=== PATIENT | female | born 1940 | race Hispanic/Latino ===

== ENCOUNTER 2017-04-17 02:48 | Inpatient (IN) | payer MEDICARE ==
[2017-04-17] MEDS ORDERED: Insulin Regular 300 UNITS/3 ML VIAL ONE (03:55)
[2017-04-17] MEDS ORDERED: Enoxaparin Sodium 80 MG/0.8 ML SYRINGE ONE (03:55)
[2017-04-17 04:17] LABS: Troponin I Less than 0.010 ng/mL (< 0.028)
[2017-04-17] MEDS ORDERED: HumaLOG 300 UNITS/3 ML VIAL SC PRN (05:43)
[2017-04-17] MEDS ORDERED: Dextrose 50% Abboject 50 ML SYRINGE SLOW IVP PRN (05:43)
[2017-04-17] MEDS ORDERED: Dextrose 5% in Water 1,000 ML IV PRN (05:43)
[2017-04-17] MEDS ORDERED: Milk Of Magnesia 30 ML UDCUP PO PRN (05:43)
[2017-04-17] MEDS ORDERED: Ondansetron ODT 4 MG TAB PO PRN (05:43)
[2017-04-17] MEDS ORDERED: Acetaminophen 325 MG TAB PO PRN (05:43)
[2017-04-17] MEDS: Furosemide 20 MG/2 ML VIAL SLOW IVP SCH ×2 (06:27→14:32)
[2017-04-17] MEDS: Potassium Chloride 20 MEQ TAB PO SCH (06:28)
[2017-04-17 06:37] LABS: Anion Gap 15 mmol/L (10-20); BUN (Urea Nitrogen) 48 mg/dL (9.8-20.1); Calc. Creatinine Clearance 0 mL/min (70-130); Calcium 8.8 mg/dL (7.8-10.44); Carbon Dioxide 21 mmol/L (23-31); Chloride 105 mmol/L (98-107); Estimated GFR-MDRD 18
[2017-04-17 06:42] LABS: Troponin I 0.011 ng/mL (< 0.028)
[2017-04-17 07:30] LABS: Sodium, Urine 106 mmol/L (Not Available)
[2017-04-17 08:11] VITALS: BMI 26.6
[2017-04-17] MEDS ORDERED: Insulin Detemir 100 UNITS/ML 10 UNITS in Admixture Fee 1 EACH SC SCH ×2 (09:00→21:00)
[2017-04-17] MEDS ORDERED: Amlodipine Besylate/Benazepril 5/10 Capsule PO SCH (09:00)
[2017-04-17] MEDS: Clopidogrel Bisulfate 75 MG TAB PO SCH (09:58)
[2017-04-17] MEDS: Pregabalin 75 MG CAP PO SCH ×2 (09:58→21:47)
[2017-04-17] MEDS: Venlafaxine HCl XR 75 MG CAP PO SCH (09:58)
[2017-04-17] MEDS: HumaLOG 300 UNITS/3 ML VIAL SC PRN ×3 (10:00→18:04)
--- NOTE | 2017-04-17 10:10 | NM ---
VQ SCAN: INDICATION: History Of elevated D-dimer: CHF with shortness of breath. COMPARISON: Prior chest radiograph 08/18/16 at 12:087 a.m. RADIOPHARMACEUTICAL: 10.10 mCi of Xenon 133 inhaled and 6.2 mCi of Technetium 99m-MAA IV. FINDINGS: VENTILATION: No ventilatory defect is evident. Washout images appear within normal limits. There is no retentio n of radiotracer. PERFUSION: No large pleural-based perfusion defect is evident. No enlarged mismatched ventilatory perfusion ab normality is evident. COMPARISON: Low probability VQ scan for acute PE. POS: [facility]
[2017-04-17 13:06] LABS: Hemoglobin A1c 9.5 % (4.0-6.0)
--- NOTE | 2017-04-17 13:14 | HP ---
CHIEF COMPLAINT: Shortness of breath. HISTORY OF PRESENT ILLNESS: Ms. Christopher is a pleasant 76-year-old female with a previous h istory of CABG several years ago. For the last 3 days, she has experienced increased dyspnea on exe rtion and orthopnea to the point that she came to our emergency room. Chest x-ray there did demonst rate cardiomegaly and she has been admitted with new-onset heart failure. PHYSICAL EXAMINATION: VITAL SIGNS: Her blood pressure is 137/72, pulse rate is 88 and regular, respirations 16. GENERAL: She is awake, alert, in no distress. EARS, NOSE, AND THROAT: No erythema or exudate. NECK: Supple. CARDIAC: PMI is displaced laterally. Heart sounds are distant. S4, gallop. No murmur or rub note d. LUNGS: Breath sounds are diminished. No rales, rhonchi, or wheezes. No respiratory distress. ABDOMEN: Flat and soft. EXTREMITIES: Trace edema. LABORATORY DATA: Chemistry 7: Sodium 137, potassium 3.6, chloride 105, bicarbonate 21, BUN is 48, creatinine is 2.61. Random glucose is 331. IMAGING: Chest x-ray shows cardiomegaly. ASSESSMENT: New-onset heart failure in a patient with known coronary artery disease. PLAN: We will admit the patient. We will consult Cardiology to consider cardiac catheterization. In the meantime, we will restart her on renally dosed heart failure medications.
[2017-04-17] MEDS ORDERED: Insulin Detemir 100 UNITS/ML 15 UNITS in Pre-Filled Syringe SC SCH (21:00)
[2017-04-17] MEDS ORDERED: Metoprolol Tartrate 25 MG TAB PO SCH (21:00)
[2017-04-17] MEDS ORDERED: FLU VACC TS2017-18 (>65YR) 0.5 ML SYRINGE IM ONE (21:00)
[2017-04-17] MEDS: Carvedilol 6.25 MG TAB PO SCH (21:07)
--- NOTE | 2017-04-17 21:27 | HP-2 ---
CODE STATUS: Full. PRIMARY CARE PHYSICIAN: None. ATTENDING: Dr. Zacarias Freeman. RESIDENT: Dr. Bethany Trevino. HISTORIAN: Patient with a granddaughter helping to translate. CHIEF COMPLAINT: Shortness of breath and cough. HISTORY OF PRESENT ILLNESS: The patient is a 76-year-old female with past medical history of diabet es mellitus, hyperlipidemia, history of CVA and hypertension who presented to [place] [facility] with a chief complaint of shortness of breath was found to have an elevated BNP at 510 and an elevated D-d salvatore with initial O2 sats at 88% on room air. She was given 80 mg IV Lasix, 125 mg Solu-Medrol, 10 mg Decadron and aspirin before transfer. Patient reports acute cough, shortness of breath, orthopne a and muscle cramps x1 day. No fever. Patient was visiting from [place]. Baseline mental status is forgetful and oriented until the last follow up with her PCP in [place]. Reports compliance with [facility]. PAST MEDICAL HISTORY: 1. Diabetes mellitus, insulin-dependent. 2. Hyperlipidemia. 3. History of CVA in 2014. 4. Hypertension. 5. Depression. PAST SURGICAL HISTORY: 1. CABG in 2013. 2. Hysterectomy. ALLERGIES: No known drug allergies. MEDICATIONS: 1. Amlodipine/benazepril 5 mg/10 mg daily. 2. Aspirin 81 mg. 3. Clopidogrel 75 mg daily. 4. Crestor 10 mg at bedtime. 5. Lyrica 75 mg b.i.d. 6. Metoprolol tartrate 25 mg at bedtime. 7. Venlafaxine 75 mg. 8. Insulin, unknown regimen. FAMILY HISTORY: Noncontributory. SOCIAL HISTORY: No tobacco, alcohol or drug use. REVIEW OF SYSTEMS: GENERAL: Negative for fever and chills, weight and appetite changes. EYES: Negative for vision changes. ENT: Negative for nasal congestion. RESPIRATORY: Positive for cough and shortness of breath. CARDIOVASCULAR: Negative for chest pain. Negative for edema. Positive for orthopnea. GASTROINTESTINAL: Negative for nausea, vomiting. GENITOURINARY: Negative for dysuria and overt hematuria. MUSCULOSKELETAL: Positive for pain and muscle cramps. NEUROLOGIC: Negative for weakness, numbness, syncope. PSYCHIATRIC: Negative for anxiety, depression. PHYSICAL EXAMINATION: VITAL SIGNS: Blood pressure 124/92, pulse 85, respiratory rate 18, T-max 97.9, pulse ox 96% on room air, current weight 77.1 kilograms. GENERAL: The patient is alert and oriented x1 in no acute distress, well developed. HEENT: EOMI. NECK: Supple, without lymphadenopathy. CARDIOVASCULAR: Regular rate and rhythm. No murmur. Radial pulses 2+. RESPIRATORY: Normal effort. No retractions. Does have rales bilaterally. SKIN: Warm and dry. ABDOMEN: Soft and nontender. Bowel sounds present. EXTREMITIES: No clubbing, cyanosis. Does have 1+ pitting edema bilaterally. MUSCULOSKELETAL: Appears to have thenar atrophy and decreased muscle mass. NEUROLOGIC: No focal deficits. PSYCHIATRIC: Confused, but appropriate. LABORATORY DATA: CBC: White blood cell count 8.1, hemoglobin 12.3, hematocrit 39.2, platelets 242. Chemistries: Sodium 140, potassium 4.0, chloride 106, CO2 of 23, BUN 43, creatinine 2.85, GFR 16, b lood glucose 484, calcium 8.3, total protein 7.1, albumin 3.4, AST 13, ALT 13, alkaline phosphatase 146 and total bilirubin less than 0.3. Coag studies: PT 13.5, INR 1.0, PTT 25.7. D-dimer 1.48. BNP 509.5. CK-MB 3.0, troponins 0.014. UA: Specific gravity 1.020, blood small, protein greater than 300, leukocyte esterase negative, nit rites negative, ketones negative, glucose 500, red blood cells 11-20, white blood cells 7-10, bacter ia 0-3. Chest x-ray: Enlarged cardiac silhouette subluxation. No pleural effusion, no consolidation. [facility] read is pending. ASSESSMENT AND PLAN: 1. Likely new-onset congestive heart failure. Patient with elevated BNP of 900 on previous ER admi ssion, but was never treated for it, last echo in 09/2012 which showed grade I/III diastolic dysfunc tion. The patient has diuresed well thus far, but has remaining rales bilaterally and lower extremi ty edema. We will start 20 mg IV b.i.d. and strict I's and O's, daily weight, fluid restriction and repeat an echo. Consider Cardiology consult. 2. Elevated D-dimer. Patient with poor history and high risk factors for pulmonary embolism. We w ill get a VQ scan to rule out pulmonary embolism due to patient's kidney functions. She was not a c andidate for contrast dye. She was given therapeutic Lovenox x1 in the ED. 3. Coronary artery disease. The patient with history of coronary artery bypass graft in 2012. We will trend the troponins and consider Cardiology consult. 4. Diabetes mellitus. 10 units of Levemir b.i.d., sliding scale insulin and check an A1c. 5. Acute kidney injury. Renally dose all meds. We will get a urine creatinine and urine sodium to calculate for further evaluation. It appears to be the patient's baseline creatinine is 1.2. 6. Hematuria. The patient is not symptomatic, will need outpatient followup and evaluation. 7. Hypertension. Restart home medications, metoprolol and amlodipine/captopril. 8. Hyperlipidemia. Patient was on Crestor 10 mg. I have increased it to Crestor 20 mg due to the patient's history of cerebrovascular accident. She should be on high dose statin. 9. Depression. Continue home venlafaxine. 10. History of cerebrovascular accident. Continue clopidogrel and daily aspirin. 11. Muscle cramps. We will get a BMP now and start potassium supplement. This is likely due to [place] six. 12. Deconditioning. The patient is placed on fall risk precautions and PT, OT consulted. 13. CODE STATUS: Full. DISPOSITION AND LENGTH OF HOSPITAL STAY: 1-2 days. Symptomatic medications will be provided. History and physical exam as well as management was discussed with Dr. Zacarias Freeman.
--- NOTE | 2017-04-17 21:32 | CON ---
DATE OF CONSULTATION: 04/17/2017 HISTORY: Ms. Lissy Christopher is a 76-year-old female, Nigerian speaking only, translation was provided by one of the nurses. She has had bypass surgery in the past in [place], [place]. She was hospitalized here in 2016 with hyperosmolar state, mental status changes requiring intubation. Hospitalized again here in 09/2016 after a fall sustaining rib fractures. She is a resident at a [facility] in [place]. Over the last 2-3 days, she has had problems with increased shortness of breath. She denies any chest discomfort. She was taken to the [facility] and found to have a blood pressure of 247/126. Chest x-ray was consistent with pulmonary edema. She was given labetalol 20 mg IV, Solu-Medrol 125 mg IV, Decadron 10 mg IV, Lasix 80 mg IV, and DuoNeb and then transferred here. She has continued to have somewhat elevated blood pressure with systolics in the 160s to 190s. Her breathing has improved and she has diuresed. PAST MEDICAL HISTORY: Remarkable for hypertension, hyperlipidemia, diabetes, history of stroke, and chronic kidney disease. OPERATIONS: CABG and probable hysterectomy. MEDICATIONS: Lotrel 5/10 daily, Ecotrin 81 daily, Plavix 75 daily, Levemir 30 units q.a.m. and 10 units at bedtime, metoprolol 25 at bedtime, Lyrica 75 b.i.d. , Crestor 10 mg daily, venlafaxine ER 75 daily. ALLERGIES: None. SOCIAL HISTORY: She does not smoke or drink. REVIEW OF SYSTEMS: Difficult to obtain with language barrier, but overall negative. PHYSICAL EXAMINATION: VITAL SIGNS: 140/62, pulse 87. HEENT: PERRL. NECK: Supple. LUNGS: Chest reveals crackles at the bases. CARDIAC: S1 and S2 are normal, without any S3, S4 or murmurs. Carotid upstrokes are normal without bruits. ABDOMEN: Normal bowel sounds, without tenderness or organomegaly. EXTREMITIES: Revealed 1+ pretibial edema. NEUROLOGIC: Grossly intact. SKIN: Warm and dry. LABORATORY DATA AND IMAGING: EKG revealed normal sinus rhythm with nonspecific T-wave changes. Cardiac enzymes are unremarkable. Hemoglobin 12.3, hematocrit 39.2, white count 8100, platelets 242,000. D-dimer 1.48. INR 1.0. Sodium 137 , potassium 3.6, chloride 105, carbon dioxide 21, BUN 48, creatinine 2.61, glucose is up to 454. It is of note that in 09/2016 when she is discharged, her creatinine was 1.50. Chest x-ray reveals cardiomegaly and pulmonary edema, previous sternotomy. Ventilation perfusion scan is low probability for pulmonary embolism. Echocardiogram revealed mild left atrial enlargement, normal left ventricular systolic function with ejection fraction of 55%-60%, evidence for diastolic dysfunction, aortic valvular sclerosis, mild to moderate tricuspid regurgitation and moderate mitral regurgitation. IMPRESSION: 1. Acute on chronic diastolic heart failure, probably secondary to poorly controlled hypertension. 2. Chronic kidney disease with a GFR of 18. 3. Hypertension, very poorly controlled. 4. Diabetes. 5. Hypercholesterolemia. 6. Status post coronary artery bypass graft. 7. History of CVA. PLAN: The patient's beta chris will be increased. Also with her severe renal insufficiency, I will discontinue her MARA inhibitor and also use hydralazine for better blood pressure control. With the severity of her renal disease and poorly controlled hypertension, consideration should be given to renal consult. Her cardiac enzymes have been normal. She has no evidence of an infarction. Without knowledge of the location of her bypass grafts and with her severe renal insufficiency, I do not feel that she is a candidate for catheterization or that she needs cardiac catheterization at this time and that she should just be treated medically. Cardiac catheterization probably would result in her being on dialysis. SERGIOD
[2017-04-18] MEDS: Furosemide 20 MG/2 ML VIAL SLOW IVP SCH (05:41)
--- NOTE | 2017-04-18 06:18 | PDOC.FM ---
- Subjective Subjective: Patient was found last night sitting on the floor next to her bed. States that she just got a little off balanced while getting out of bed, so she just sat down. Did not hit her head. Doing well this morning, no other acute events/ changes overnight. - Objective MAR Reviewed: Yes Vital Signs & Weight: Vital Signs (12 hours) Temp Pulse Resp BP BP Pulse Ox 04/18/17 04:00 97.4 F L 81 18 164/79 H 04/17/17 21:08 87 178/80 H 04/17/17 21:07 178/80 H 04/17/17 19:30 97.6 F 88 20 178/80 H 98 Weight Weight 67.495 kg I&O: 04/16/17 04/17/17 04/18/17 06:59 06:59 06:59 Intake Total 480 720 Output Total 1999 1650 Balance -1520 -930 Result Diagrams: 04/18/17 04:42 Radiology Reviewed by me: Yes Phys Exam - Physical Examination Constitutional: NAD HEENT: moist MMs, sclera anicteric, oral pharynx no lesions Neck: supple, full ROM Respiratory: no wheezing, no rales, no rhonchi, clear to auscultation bilateral Cardiovascular: RRR, no significant murmur, no rub Gastrointestinal: soft, non-tender, no distention, positive bowel sounds Musculoskeletal: no edema, pulses present Neurological: non-focal, moves all 4 limbs Psychiatric: normal affect, A&O x 3 Dx/Plan (1) Diastolic CHF Code(s): I50.30 - UNSPECIFIED DIASTOLIC (CONGESTIVE) HEART FAILURE Status: Acute Qualifiers: Congestive heart failure chronicity: acute on chronic Qualified Code(s): I50.33 - Acute on chronic diastolic (congestive) heart failure Plan: Acute on Chronic Diastolic CHF: -Dr. Rios, Cardiology, consulted. Increased Beta chris, held ACEI, started hydralazine TID. -Not candidate for cath due to renal failure, will manage medically -monitor blood pressures, I/Os -continue Lasix (2) Acute on chronic kidney failure Code(s): N17.9 - ACUTE KIDNEY FAILURE, UNSPECIFIED; N18.9 - CHRONIC KIDNEY DISEASE, UNSPECIFIED Status: Acute Plan: May be at baseline kidney function. She had slightlydowntrending Cr by 0.2 at this time, but passed GFRs have been around the same. May consider consulting nephro. (3) DM (diabetes mellitus), type 2, uncontrolled Code(s): E11.65 - TYPE 2 DIABETES MELLITUS WITH HYPERGLYCEMIA Status: Chronic Qualifiers: Plan: Patient is poorly controlled Blood sugars have ranged from 350s-450s. Increasing Levemir to 20 BID. Continue to monitor, Accuchecks (4) HTN (hypertension) Code(s): I10 - ESSENTIAL (PRIMARY) HYPERTENSION Status: Chronic Qualifiers: Plan: Coreg and Hydralazine, continue to monitor BPs closely
[2017-04-18 06:21] LABS: Anion Gap 14 mmol/L (10-20); BUN (Urea Nitrogen) 60 mg/dL (9.8-20.1); Calc. Creatinine Clearance 21 mL/min (70-130); Calcium 8.7 mg/dL (7.8-10.44); Carbon Dioxide 23 mmol/L (23-31); Chloride 101 mmol/L (98-107); Estimated GFR-MDRD 19
--- NOTE | 2017-04-18 08:01 | RAD ---
CHEST 1 VIEW: Date: 04/18/17 HISTORY: Shortness of breath. COMPARISON: Chest 1 view dated 09/13/16. FINDINGS: Heart size is prominent. Mild blunting left lateral costophrenic sulcus. No pneumothorax. Multiple median sternotomy wires. IMPRESSION: 1. Mild blunting left lateral costophrenic sulcus may be chronic scarring. 2. No focal air space consolidation. 3. When evaluating relative to the prior examination, there is decreased pulmonary edema. POS: [facility]
[2017-04-18] MEDS ORDERED: Insulin Detemir 100 UNITS/ML 15 UNITS in Pre-Filled Syringe SC SCH (09:00)
[2017-04-18] MEDS ORDERED: Insulin Detemir 100 UNITS/ML 20 UNITS in Pre-Filled Syringe 1 EACH SC SCH (09:00)
[2017-04-18] MEDS: Pregabalin 75 MG CAP PO SCH ×2 (10:10→21:12)
[2017-04-18] MEDS: Potassium Chloride 20 MEQ TAB PO SCH (10:12)
[2017-04-18] MEDS: Venlafaxine HCl XR 75 MG CAP PO SCH (10:12)
[2017-04-18] MEDS: Carvedilol 6.25 MG TAB PO SCH ×3 (10:14→21:11)
[2017-04-18] MEDS: Enoxaparin Sodium 30 MG/0.3 ML SYRINGE SC SCH (10:15)
[2017-04-18] MEDS ORDERED: Clopidogrel Bisulfate 75 MG TAB PO SCH (10:45)
[2017-04-18] MEDS: Clopidogrel Bisulfate 75 MG TAB PO SCH ×2 (10:52→10:59)
[2017-04-18] MEDS: HumaLOG 300 UNITS/3 ML VIAL SC PRN ×2 (11:39→18:17)
--- NOTE | 2017-04-18 11:57 | ADD-PRG ---
DATE OF SERVICE: 04/18/2017 This is an addendum to the note of Dr. James Daniel. Ms. Christopher's blood pressure is now much improved. She is asymptomatic and no longer short of breat h. We can likely discharge her later today with close followup with her PCP. Her echo did demonstr ate mild heart failure with preserved ejection fraction and changes consistent with diastolic dysfun ction.
[2017-04-18] MEDS ORDERED: INSULIN DETEMIR SC SCH (21:00)
[2017-04-18] MEDS ORDERED: PRE FILLED SC SCH (21:00)
[2017-04-19 05:27] LABS: Anion Gap 12 mmol/L (10-20); BUN (Urea Nitrogen) 59 mg/dL (9.8-20.1); Calc. Creatinine Clearance 22 mL/min (70-130); Calcium 8.6 mg/dL (7.8-10.44); Carbon Dioxide 28 mmol/L (23-31); Chloride 104 mmol/L (98-107); Estimated GFR-MDRD 20
--- NOTE | 2017-04-19 05:57 | PDOC.FM ---
- Subjective Subjective: Per patient's nurse, pt did well overnight. This morning's labs showed blood sugar of 55, patient was asymptomatic and given juice. Spoke to patient's granddaughter this morning. Patient does, in fact, live at home with her daughter, son in law, 2 granddaughters, and 1 grandson. Per patient granddaughter, she takes 30U insulin in AM and 10 U of insulin at night. The family manages her insulin administration as well as her other medications. They plan on coming to the hospital this morning. Granddaughter states that she does not have a primary care doctor here in town. - Objective MAR Reviewed: Yes Vital Signs & Weight: Vital Signs (12 hours) Temp Pulse Resp BP BP Pulse Ox 04/19/17 04:00 97.8 F 69 16 120/59 L 96 04/18/17 21:11 76 123/63 04/18/17 19:57 97.5 F L 76 18 123/63 97 Weight Weight 67.495 kg I&O: 04/17/17 04/18/17 04/19/17 06:59 06:59 06:59 Intake Total 480 720 Output Total 1999 1650 Balance -1520 -930 Result Diagrams: 04/19/17 04:48 Phys Exam - Physical Examination Constitutional: NAD HEENT: moist MMs, sclera anicteric Neck: no JVD, supple, full ROM Respiratory: no wheezing, no rales, no rhonchi, clear to auscultation bilateral Cardiovascular: RRR, no significant murmur, no rub Gastrointestinal: soft, non-tender, no distention Musculoskeletal: no edema, pulses present Neurological: non-focal, moves all 4 limbs Deviation from normal: difficult to understand at times, and needs repeated explanations Dx/Plan (1) Diastolic CHF Code(s): I50.30 - UNSPECIFIED DIASTOLIC (CONGESTIVE) HEART FAILURE Status: Acute Qualifiers: Congestive heart failure chronicity: acute on chronic Qualified Code(s): I50.33 - Acute on chronic diastolic (congestive) heart failure Plan: Acute on Chronic Diastolic CHF: -Dr. Rios, Cardiology, consulted. Increased Beta chris, held ACEI, started hydralazine TID. -Not candidate for cath due to renal failure, will manage medically -monitor blood pressures, I/Os -continue Lasix 20 mg PO daily -Dr. Rios has cleared patient from cardiac standpoint for discharge today (2) Acute on chronic kidney failure Code(s): N17.9 - ACUTE KIDNEY FAILURE, UNSPECIFIED; N18.9 - CHRONIC KIDNEY DISEASE, UNSPECIFIED Status: Acute Plan: May be at baseline kidney function. She had slightlydowntrending Cr by 0.2 at this time, but passed GFRs have been around the same. Cr today is 2.36 May need to establish care with a insurance processing clerk on outpatient basis. (3) DM (diabetes mellitus), type 2, uncontrolled Code(s): E11.65 - TYPE 2 DIABETES MELLITUS WITH HYPERGLYCEMIA Status: Chronic Qualifiers: Plan: Patient is poorly controlled After increasing night time dose to 22U, patient had a blood sugar of 56 at 4 am this morning, asymptomatic, given juice. Will decrease Levemir back down to 20U for discharge. Continue to monitor, Accuchecks. (4) HTN (hypertension) Code(s): I10 - ESSENTIAL (PRIMARY) HYPERTENSION Status: Chronic Qualifiers: Plan: Coreg TID and Hydralazine TID, continue to monitor BPs closely. Blood pressures - Plan Plan: Patient will be discharged back home today.
[2017-04-19] MEDS: Enoxaparin Sodium 30 MG/0.3 ML SYRINGE SC SCH (08:26)
[2017-04-19] MEDS: Carvedilol 6.25 MG TAB PO SCH (08:27)
[2017-04-19] MEDS: Venlafaxine HCl XR 75 MG CAP PO SCH (08:27)
[2017-04-19] MEDS: Clopidogrel Bisulfate 75 MG TAB PO SCH (08:27)
[2017-04-19] MEDS: Potassium Chloride 20 MEQ TAB PO SCH (08:27)
[2017-04-19] MEDS: Pregabalin 75 MG CAP PO SCH (08:27)
[2017-04-19] MEDS ORDERED: PRE FILLED SC SCH (09:00)
[2017-04-19] MEDS ORDERED: Furosemide 20 MG TAB PO SCH (09:00)
[2017-04-19] MEDS ORDERED: cefTRIAXone\\ROCEPHIN 1 GM in Sodium Chloride 0.9% 100 ML IVPB SCH (09:00)
[2017-04-19] MEDS ORDERED: INSULIN DETEMIR SC SCH (09:00)
[2017-04-19] MEDS ORDERED: Amoxicillin/Potassium Clav 500 MG TAB PO SCH ×2 (09:45→21:00)
--- NOTE | 2017-04-19 11:20 | ADD-PRG ---
DATE OF SERVICE: 04/19/2017 This is an addendum to the note of Dr. James Daniel. Ms. Christopher this morning is awake, alert, cheerful, in no distress. Her blood pressure after mateo us adjustments in her medications is now approaching near normal. She will be discharged to the car e of her family today.
[2017-04-19 12:56] VITALS: BP 111/63; TEMP 97.5
--- NOTE | 2017-04-20 00:39 | DIS-2 ---
DATE OF ADMISSION: 04/17/2017 DATE OF DISCHARGE 04/19/2017 RESIDENT: James Daniel MD ADMITTING ATTENDING: Dr. Zacarias Freeman. DISCHARGE ATTENDING: Dr. Zacarias Freeman. CONSULTATIONS: Cardiology, Dr. Jevon Rios that is on 04/17/2017. PROCEDURES: 1. Chest x-ray on 04/17/2017, impression findings suggesting pulmonary edema. Followup to [facility] on advised. 2. Nuclear medicine report. Ventilation perfusion imaging on 04/17/2017, impression was low probab ility V/Q scan for acute PE. 3. Echocardiogram on 04/17/2017 showed ejection fraction at 55%-60%. Overall, left ventricular fun ction was normal. E/A flow reversal noted suggestive of diastolic dysfunction, moderate mitral regu rgitation is present, and [id number] tricuspid regurgitation. 4. Chest x-ray on 04/18/2017, impression decreased pulmonary edema, mild blunting of left lateral c ostophrenic sulcus may be chronic scarring and no focal airspace consolidation. PRIMARY DIAGNOSIS: Acute on chronic congestive heart failure with preserved ejection fraction. SECONDARY DIAGNOSES: 1. Diabetes mellitus. 2. Acute kidney injury on chronic kidney disease. 3. Hypertension. 4. Hyperlipidemia. 5. Depression. DISCHARGE MEDICATIONS: 1. Levemir 30 units subcutaneous q.a.m. and 10 units subcutaneous at bedtime. 2. Lyrica 75 mg p.o. b.i.d. 3. Aspirin 81 mg p.o. daily. 4. Plavix 75 mg p.o. daily. 5. Venlafaxine 75 mg p.o. daily a.c. 6. Rosuvastatin 10 mg p.o. daily. 7. Carvedilol 6.25 mg p.o. b.i.d. 8. Augmentin 500 mg p.o. q.12 hours. 9. Hydralazine 50 mg p.o. t.i.d. 10. Furosemide 20 mg p.o. daily. DISCONTINUED MEDICATIONS: 1. Lovenox 80 mg. 2. Rocephin 1 gram. HISTORY OF PRESENT ILLNESS/HOSPITAL COURSE: Lissy Christopher is a 76-year-old female with past medical history of diabetes, hypertension, hyperlipidemia, history of CVA, who presented to the [facility] ER with chief complaint of shortness of breath and was found to have an elevated BNP at 510 and an elevated D-dimer with initial O2 sats at 88% on room air. She was given 80 mg IV Lasix, 125 mg Echo u-Medrol, and 10 mg of Decadron, and aspirin and was transferred to [facility]. The patient repo rts acute cough and shortness of breath with orthopnea and muscle cramps x1 day. She denied any fev er. Patient was visiting around [place]. She has family in [place], [place]. Patient's family manages her home medications. On admission, her blood pressure was 124/92, pulse of 85, respiratory rate 1 8, T-max 97.9, pulse ox 96% on room air. Patient was alert and oriented x1 in no acute distress and well developed. Her A\T\O is appeared to be close to her baseline, as she is often forgetful and n ot always completely A\T\O x3 at home. Physical exam was significant for rales bilaterally and 1+ p itting edema bilaterally in the lower extremities. She had a BUN of 43 and creatinine of 2.85 with a GFR of 16. Her baseline in past admissions to this hospital was anywhere between 16 and mid 30s. She also had a blood glucose of 484. D-dimer was 1.48. BNP was 509. CK-MB was 3.0 and troponins were negative x3. UA was positive for protein greater than 300, small blood, glucose of 500, red bl ood cells 11-20, white blood cells 7-10, and bacteria 0-3. Chest x-ray on admission showed enlarged cardiac silhouette and pleural effusions. No consolidations. HOSPITAL COURSE: Patient was admitted to the [facility] inpatient and pulmonary embolism was ruled out wi V/Q scan due to kidney function. Echocardiogram showed heart failure with preserved ejection fra ction with diastolic dysfunction. Dr. Jevon Rios, [facility] was consulted and recommended t hat since she had severe renal disease and poorly controlled hypertension, he wanted to discontinue MARA inhibitor and did not feel like she was a candidate for catheterization and thought that she marcy uld be treated medically, stating that cardiac catheterization probably would result her being on di alysis. Patient's beta chris was increased and hydralazine was added for better blood pressure co ntrol. MARA inhibitor was stopped or discontinued rather. On 04/18/2017, chest x-ray showed improve ment of pleural effusions. Patient's overall status improved. Whenever she was admitted to the [facility], she was requiring 2 liters of oxygen and on the , she was no longer on oxygen, satting 95 %-97% on room air. Patient's blood pressure on admission was 209/90. Blood pressures decreased ove r the course of her admission and on day of discharge on 04/18/2017, blood pressures were in the 120 s to 130s/60s. On the day of discharge, she was 111/63. Patient was also found to have a urinary t ract infection with urine culture showing Gram-negative E. coli sensitive to NITROFURANTOIN, BACTRIM , and AUGMENTIN. Due to patient's severe kidney disease, patient was started on Augmentin 500 mg p. o. b.i.d. for 5 days. Patient was cleared for discharge on 04/19/2017, from a cardiac standpoint by Dr. Jevon Rios and patient was discharged home with family support with understanding that she will need to follow up closely with [place] [facility] physicians and follow up with Cardiology and Nephro logy. Patient and her family was in agreement with this plan. DISPOSITION: Guarded. DISCHARGE INSTRUCTIONS: 1. Location: Home with family support. 2. Diet: Heart healthy and consistent carbohydrate. ACTIVITY: As tolerated. FOLLOWUP: 1. Primary care physician within the next 3 days. 2. [facility] within the next week. 3. Site Monitor within the next week.
[2017-04-20] MEDS ORDERED: Amoxicillin/Potassium Clav 500 MG TAB PO SCH (08:00)
== END 2017-04-19 13:36 | disposition home or self-care (01) | DRG 291 ==
LOC: ERS 02:48 → 2NO 03:35
PROVIDERS: ADMIT Family Medicine; ATTEND Family Medicine
DX: I13.0 Hypertensive heart and chronic kidney disease with heart failure and stage 1 through stage 4 chronic kidney disease, or unspecified chronic kidney disease (principal); I50.33 Acute on chronic diastolic (congestive) heart failure; J96.01 Acute respiratory failure with hypoxia; N18.4 Chronic kidney disease, stage 4 (severe); N17.9 Acute kidney failure, unspecified; E11.22 Type 2 diabetes mellitus with diabetic chronic kidney disease; I08.1 Rheumatic disorders of both mitral and tricuspid valves; N39.0 Urinary tract infection, site not specified; Z79.4 Long term (current) use of insulin; B96.20 Unspecified Escherichia coli [E. coli] as the cause of diseases classified elsewhere; E78.5 Hyperlipidemia, unspecified; F32.9 Major depressive disorder, single episode, unspecified; I25.10 Atherosclerotic heart disease of native coronary artery without angina pectoris; Z95.1 Presence of aortocoronary bypass graft; Z86.73 Personal history of transient ischemic attack (TIA), and cerebral infarction without residual deficits; R25.2 Cramp and spasm
CPT/HCPCS: 36415; 36416; 71010; 78582; 80048; 82570; 83036; 84300; 84540; 87077; 87086; 87186; 90471; 90682; 90732; 93005; 93306; 94760; 96372; 96374; A4216; A9540; A9558; G0008; G0009; G8978-GP-CJ; G8979-GP-CI; G8987-GO-CL; G8988-GO-CJ; J0696; J1650; J1815; J1940; J7050; Q2036

== ENCOUNTER 2017-11-29 13:35 | Emergency (ER) | payer MEDICARE, MEDICAID ==
--- NOTE | 2017-11-29 15:30 | CT ---
CT HEAD NONCONTRAST: History: Fall. Head injury. Comparison: 10-01-16 FINDINGS: There is no evidence of acute intracranial hemorrhage or infarct. Encephalomalacia within the right f rontal lobe is stable. Chronic ischemic small vessel disease is again demonstrated. There is no mass effect or shift of midline structures. Scattered foci of dystrophic calcifications are unchanged. Visualized paranasal sinuses remain well aerated. IMPRESSION: Old right frontal infarct and other chronic type findings are stable. No acute intracranial abnormali ties are demonstrated on noncontrast CT head. POS: [facility]
== END 2017-11-29 15:01 | disposition home or self-care (01) ==
LOC: ERS 13:35
DX: Z04.3 Encounter for examination and observation following other accident (principal); R29.6 Repeated falls; E78.5 Hyperlipidemia, unspecified; E11.9 Type 2 diabetes mellitus without complications; I10 Essential (primary) hypertension; N17.9 Acute kidney failure, unspecified; I67.4 Hypertensive encephalopathy; Z86.73 Personal history of transient ischemic attack (TIA), and cerebral infarction without residual deficits; Z79.4 Long term (current) use of insulin; F32.9 Major depressive disorder, single episode, unspecified; Z79.899 Other long term (current) drug therapy; Z79.82 Long term (current) use of aspirin; W19.XXXA Unspecified fall, initial encounter; Y92.009 Unspecified place in unspecified non-institutional (private) residence as the place of occurrence of the external cause
CPT/HCPCS: 70450; 93005

== ENCOUNTER 2018-02-01 04:36 | Inpatient (IN) | payer MEDICARE, MEDICAID ==
[2018-02-01] MEDS ORDERED: Furosemide 40 MG/4 ML VIAL ONE (06:28)
[2018-02-01 07:05] LABS: Troponin I Less than 0.010 ng/mL (< 0.028)
[2018-02-01] MEDS ORDERED: hydrALAZINE 20 MG/ML VIAL SLOW IVP PRN (09:13)
[2018-02-01] MEDS ORDERED: Dextrose 50% Abboject 50 ML SYRINGE SLOW IVP PRN (09:13)
[2018-02-01] MEDS ORDERED: HumaLOG 300 UNITS/3 ML VIAL SC PRN (09:13)
[2018-02-01] MEDS ORDERED: Dextrose 5% in Water 1,000 ML IV PRN (09:13)
[2018-02-01] MEDS ORDERED: Heparin 5,000 UNITS/ML VIAL SC SCH (09:30)
--- NOTE | 2018-02-01 10:26 | HP ---
PRIMARY CARE PHYSICIAN: Patient says that she does not currently have a primary care physician. She also tells me she does not have a project/production manager imaging. CHIEF COMPLAINT: Chest pain. HISTORY OF PRESENT ILLNESS: Ms. Christopher is a very pleasant 77-year-old female that has a hi story of hypertension, diabetes mellitus, and chronic kidney disease. She says that she was going to bed last night when she suddenly got a pain in the center of her chest and it was radiating to the l eft side and also radiated into her neck. Also at the time, she was shortness of breath and had a bi t of a cough. It was quite severe and she says it lasted about 3 hours and as a result, her family b rought her to the emergency room for evaluation. Now, she says the pain is basically gone and her br eathing is better and right now, she has no other complaints. From talking with her and the family a ctually had left, it sounds like she had had a surgery on her heart. She has had an operation about 3 years ago and looked like she has a bypass graft scar there and it sounds like she has not had much evaluation since then. I do not see any stress test in our records and as a result, she is being ad mitted for evaluation for chest pain. Also, her creatinine is quite elevated and approaching the lev el for end-stage renal disease and it sounds like she has not seen a kidney specialist and may need e valuation for this as well. REVIEW OF SYSTEMS: All systems were reviewed and are negative except for that mentioned in history o f present illness. PAST MEDICAL HISTORY: Significant for hypertension, hyperlipidemia, diabetes mellitus, cerebrovascul ar disease, and chronic kidney disease. PAST SURGICAL HISTORY: She has had bypass surgery and hysterectomy. ALLERGIES: No known drug allergies. SOCIAL HISTORY: She is a nonsmoker, nondrinker. She lives with family. FAMILY HISTORY: No history of any inheritable diseases. CURRENT MEDICATIONS: These are taken from the ER records include aspirin 81 mg daily, Plavix 75 mg a day, Lyrica 75 mg twice daily, atorvastatin 40 mg daily, vitamin D 50,000 units daily, oxcarbazepine 300 mg twice a day, calcitriol 0.25 mcg daily, and nifedipine 60 mg once daily. PHYSICAL EXAMINATION: GENERAL: She is alert and oriented. She appears to be in no acute distress. She is lying flat on t he stretcher without any dyspnea and she is well-developed and well-nourished. VITAL SIGNS: Her blood pressure was 157/97, heart rate 94, respiratory rate of 18, temperature, she is afebrile. HEENT: Pupils are equal, round, and reactive. Extraocular muscles are intact. Her sclerae are anic teric. Throat: There is no erythema, no exudates. NECK: No adenopathy, no bruits. LUNGS: Clear to auscultation. I did not appreciate any wheezing or rales. CARDIOVASCULAR: She has a normal S1, S2. I did not appreciate an S3 or S4. No murmurs, clicks or r ubs. ABDOMEN: Soft, it is nontender, nondistended. Positive for bowel sounds. There is no rebound or gu arding. EXTREMITIES: There is no clubbing, cyanosis, no edema. NEUROLOGICALLY: The exam is grossly nonfocal. SKIN/INTEGUMENT: There are no significant skin changes or lesions. LABORATORY DATA: White blood cell count 7.2, hemoglobin 9.8, hematocrit is 29.4, platelet count is 2 63. Her sodium is 140, potassium 4.6, chloride is 109, CO2 is 19, BUN of 64, creatinine of 3.5, gluc ose is 136. She had a chest x-ray and had mild cardiomegaly and some chronic interstitial lung briceño es and a CT scan of the brain and there was evidence of an old infarct, but no acute intracranial zackery nges. On the EKG, sinus rhythm, the rate is [address] wave changes. ASSESSMENT AND PLAN: 1. This is a 77-year-old female who presents to the emergency room with complaints of chest pain and shortness of breath who has a history of coronary artery disease and has risk factors for heart dise ase as well including hypertension and diabetes and besides a recent echocardiogram, it is unclear wh ether or not she has had a stress test. She will be admitted to the hospital and ruled out, and we w ill get a nuclear stress test to further stratify her risk for acute coronary syndrome. 2. She has significant renal disease. At this point, it looks like she has at least a stage 5. She tells me she is not on dialysis. Therefore, we will consult Nephrology and consider renal ultrasoun d and see if she is approaching end-stage renal disease. 3. For hypertension, we will continue her usual medicines for blood pressure as well as p.r.n. medic chuck as well. 4. Diabetes mellitus. We will place her on sliding scale insulin. In review of her records from e , she does not appear to be on any specific diabetic medication. This will need to be clarified and of course, we will again place her on sliding scale insulin. Further recommendations are to foll ow.
[2018-02-01] MEDS: Acetaminophen 325 MG TAB PO PRN (13:29)
[2018-02-01] MEDS: Heparin 5,000 UNITS/ML VIAL SC SCH ×2 (17:52→21:56)
[2018-02-01] MEDS: Nitroglycerin 2% Ointment 1 INCH/1 GM Packet TOP SCH (17:53)
[2018-02-01] MEDS ORDERED: Amlodipine 10 MG TAB PO SCH (19:00)
[2018-02-01] MEDS ORDERED: Prevnar 13-Val Conj/PF 0.5 ML SYRINGE IM ONE (20:15)
[2018-02-01] MEDS: Carvedilol 6.25 MG TAB PO SCH (21:56)
[2018-02-01] MEDS: hydrALAZINE 25 MG TAB PO SCH (21:56)
[2018-02-01] MEDS: Amlodipine 10 MG TAB PO SCH (21:56)
[2018-02-01] MEDS ORDERED: cloNIDine 0.1 MG TAB PO PRN (22:46)
[2018-02-01] MEDS ORDERED: Nitroglycerin 2% Ointment 1 INCH/1 GM Packet TOP PRN (22:46)
[2018-02-02] MEDS: Nitroglycerin 2% Ointment 1 INCH/1 GM Packet TOP SCH (00:58)
[2018-02-02 05:34] LABS: #Eosinphils 0.1 thou/uL (0.0-0.7); #Lymphocytes 1.5 thou/uL (1.20-3.40); #Monocytes 0.3 thou/uL (0.11-0.59); #Neutrophils 2.2 thou/uL (1.40-6.50); %Basophils 0.5 % (0.0-1.0); %Eosinophils 2.2 % (0.0-10.0); %Lymphocytes 35.8 % (21.0-51.0); %Monocytes 8.2 % (0.0-10.0); %Neutrophils 53.3 % (42.0-75.0); Hemoglobin 10.5 g/dL (12.0-16.0); Mean Corpuscular HGB CONC 34.8 g/dL (32.0-36.0); Mean Corpuscular Hemoglobin 32.6 pg (27.0-31.0); Mean Corpuscular Volume 93.8 fL (78.0-98.0); Mean Platelet Volume 8.4 fL (7.4-10.4); Platelet Count 256 thou/uL (130-400); RBC Distribution Width 12.3 % (11.5-14.5); Red Blood Cell (RBC) Count 3.21 mill/uL (4.20-5.40); White Blood Cell (WBC) Count 4.2 thou/uL (4.8-10.8)
[2018-02-02 05:48] LABS: Anion Gap 14 mmol/L (10-20); BUN (Urea Nitrogen) 60 mg/dL (9.8-20.1); Calc. Creatinine Clearance 16 mL/min (70-130); Calcium 8.6 mg/dL (7.8-10.44); Carbon Dioxide 22 mmol/L (23-31); Cardiac Risk 3.3 (Less than 4.5); Chloride 109 mmol/L (98-107); Cholesterol 163 mg/dl (< 200 Desired); Estimated GFR-MDRD 13; Glucose 117 mg/dL (83-110); HDL Cholesterol 49 mg/dL (>60 Neg Risk); LDL Cholesterol, Calculated 92 mg/dL; Sodium 141 mmol/L (136-145); Triglycerides 112 mg/dL (Less than 150)
[2018-02-02] MEDS ORDERED: Regadenoson 0.4 MG/5 ML SYRINGE ONE (11:14)
[2018-02-02] MEDS: hydrALAZINE 25 MG TAB PO SCH ×3 (11:52→23:44)
[2018-02-02] MEDS: Heparin 5,000 UNITS/ML VIAL SC SCH ×3 (11:52→23:43)
[2018-02-02] MEDS: Atorvastatin Calcium 40 MG TAB PO SCH (12:12)
[2018-02-02] MEDS: Carvedilol 6.25 MG TAB PO SCH ×2 (12:12→23:43)
[2018-02-02] MEDS: Clopidogrel Bisulfate 75 MG TAB PO SCH (12:12)
[2018-02-02] MEDS: HumaLOG 300 UNITS/3 ML VIAL SC PRN ×2 (13:17→17:18)
--- NOTE | 2018-02-02 14:55 | NM ---
NUCLEAR MEDICINE CARDIAC STRESS TEST WITH EJECTION FRACTION: HISTORY: Elevated BNP. Chest pain. Renal failure. Negative troponin. COMPARISON: None. TECHNIQUE: Stress and rest was performed after the intravenous administration of 29.8 and 9 mCi Technetium 99m s estamibi. There is adequate left ventricular uptake of radiotracer. There is low-grade ischemia of the inferio r and lateral wall at the mid portion. There is global hypokinesis, mild. The ejection fraction is 44%. IMPRESSION: 1. Low-grade inferior and lateral wall ischemia. 2. Global hypokinesis. 3. Ejection fraction is 44%. POS: [facility]
--- NOTE | 2018-02-02 15:31 | PDOC.PN ---
- Subjective Encounter Start Date: 02/02/18 Encounter Start Time: 15:27 Ms. Christopher was seen today in follow-up. She says she is feeling better. she denies chest pain or shortness of breath. - Objective MAR Reviewed: Yes Vital Signs & Weight: Vital Signs (12 hours) Temp Pulse Resp BP Pulse Ox 02/02/18 11:52 75 02/02/18 11:30 97.6 F 75 18 151/78 H 100 02/02/18 08:20 98.6 F 75 18 99 02/02/18 08:00 98.6 F 71 18 136/76 99 02/02/18 04:00 98.2 F 77 18 120/66 99 Weight Weight 159 lb 12.8 oz Result Diagrams: 02/02/18 04:49 02/02/18 04:49 Additional Labs: Accuchecks 02/02/18 02/02/18 02/01/18 11:41 06:10 20:26 POC Glucose 157 H 129 H 249 H 02/01/18 18:06 POC Glucose 202 H Phys Exam - Physical Examination HEENT: PERRLA Respiratory: no wheezing, no rales, no rhonchi, clear to auscultation bilateral Cardiovascular: RRR, no significant murmur, no rub Gastrointestinal: soft, positive bowel sounds Musculoskeletal: no edema Dx/Plan (1) Acute on chronic kidney failure Code(s): N17.9 - ACUTE KIDNEY FAILURE, UNSPECIFIED; N18.9 - CHRONIC KIDNEY DISEASE, UNSPECIFIED Status: Acute (2) DM2 (diabetes mellitus, type 2) Status: Chronic (3) HTN (hypertension) Code(s): I10 - ESSENTIAL (PRIMARY) HYPERTENSION Status: Chronic Qualifiers: Comment: exacerbated by psychosocial stress. resume home medication lisnopril. - Plan * Chest pain- she has a history of CAD, and her stress test is abnormal- will consult Cardiology- She has been having chest pain off and on, and the last time she was hospitalized, a cardiac cath was not performed due to concern that it would result in end stage renal disease- however, now her kidney function is worse, and she may be at end stage renal disease already * Acute on chronic kidney disease- vs. Chronic kidney disease stage 5 * DM- blood glucose is stable. * HTN- blood pressure is stable
[2018-02-02] MEDS: Albumin 25% 25 GM/100 ML BOT IVPB SCH (17:19)
--- NOTE | 2018-02-02 18:28 | CON ---
DATE OF CONSULTATION: 02/02/2018 REASON FOR CONSULTATION: Abnormal stress test. HISTORY OF PRESENT ILLNESS: Ms. Christopher is a 77-year-old woman who has been seen and evaluated by Dr Joana Rios in the past. She resides in [place], [place]. She has been here on multiple occasion s while visiting family in [place], [place]. She recently presented with increased shortness of b reath. She has chronic kidney disease, stage IV. She had stress test performed and was felt to be a bnormal with ischemia present to the inferior and lateral wall. LVEF was 44%. At this point, she is back to baseline. PAST MEDICAL HISTORY: Chronic kidney disease, hypertension, hyperlipidemia, diabetes mellitus, CVA. PAST SURGICAL HISTORY: CABG, CAD, hysterectomy. ALLERGIES: None. SOCIAL HISTORY: No current tobacco or alcohol use. She lives in [place], [place]. FAMILY HISTORY: Negative for CAD. HOME MEDICATIONS: Include Plavix, Lyrica, atorvastatin, vitamin D, Calcitriol, oxcarbazepine, nifedi pine. REVIEW OF SYSTEMS: 10-point review of systems reviewed and is as above, otherwise negative. PHYSICAL EXAMINATION: GENERAL: Patient is a pleasant female, who is in no acute distress. The patient appears her stated age. VITAL SIGNS: Blood pressure 135/74, pulse 70, temperature 97.7. NEUROLOGIC: The patient is alert and oriented times 3 with no focal neurologic deficits. HEENT: Sclerae without icterus. Mouth has moist mucous membranes with normal pallor. NECK: No JVD. Carotid upstroke brisk. No bruits bilaterally. LUNGS: Clear to auscultation with unlabored respirations. BACK: No scoliosis or kyphosis. CARDIAC: Regular rate and rhythm with normal S1 and S2. No S3 or S4 noted. No significant rubs, murmurs, thrills, or gallops noted throughout the precordium. PMI is not displaced. There is no parasternal heave. ABDOMEN: Soft, nontender, nondistended. No peritoneal signs present. No hepatosplenomegaly. No abnormal striae. EXTREMITIES: 2+ femoral and 2+ dorsalis pedis pulses. No cyanosis, clubbing, or edema. SKIN: No gross abnormalities. PERTINENT LABORATORY DATA: Hemoglobin 10.5, creatinine 3.45, which is increased from baseline of 2.3 . Stress test with myocardial perfusion is as described above. IMPRESSION: 1. Shortness of breath. 2. Acute on chronic kidney disease. 3. Coronary artery disease. 4. Status post bypass surgery. RECOMMENDATIONS: Ms. Christopher's baseline LVEF estimated at 55% diagnosed in 04/2017. It would certai nly be reasonable to proceed with coronary angiography, although at this point, given it is likely du e to a combination of diastolic failure in addition to chronic kidney disease, proceeding with angiog hortencia may worsen her kidney function and potentially cause the patient to proceed to dialysis. At th is point, she is not interested. I would certainly agree. She appears stable. We would continue me dical therapy. We would recommend she follow back up with her primary care provider and radio operator in [place], [place]. Blood pressure and heart rate appear stable. We would continue amlodipine in add ition to atorvastatin and carvedilol. Avoid MARA inhibitor therapy and ARB. Otherwise, I have no fur ther recommendations.
--- NOTE | 2018-02-02 21:34 | ULT ---
RENAL ULTRASOUND: 02/02/18 HISTORY: Renal failure. Real time imaging of the right and left kidneys were performed. the right kidney measures 10.0 and th e left kidney 9.9 cm in size. No signs of cysts, mass or obstruction. The bladder region is unremarka ble. Bilateral renal jets are noted. Renal parenchyma is of slight increased echogenicity. IMPRESSION: Slight increased echogenicity to the cortex of both kidneys which would suggest underlying medical re nal parenchymal disease. POS: [facility]
--- NOTE | 2018-02-02 22:31 | CON ---
DATE OF CONSULTATION: 02/02/2018 HISTORY OF PRESENT ILLNESS: Ms. Christopher is a 77-year-old female, who was initially admitted for chest pain. We are now being consulted for her acute kidney injury on top of her chronic renal failure. Please note this patient is a known diabetic. On close questioning, she was unaware about any renal dysfunction. She does follow up with the family doctor in [place], [place], but has not seen a pull out operator. She also is being worked up for her chest pain. A recent stress test with the patie nt showed findings of low grade inferior/lateral ischemia with EF of 44%. This afternoon, she is voi cing no new complaints. REVIEW OF SYSTEMS: Currently, no chest pain, no shortness of breath, no nausea, no vomiting. Appeti te and energy level is fair. No hematochezia, no melena, no hematemesis, no syncopal episode, no pro ductive cough or dysuria. No abdominal pain, no sore throat, no fever or chills. No hematochezia, n o melena. MEDICATIONS: Includes Tylenol 650 mg q.4 hours p.r.n., Lipitor 40 mg at bedtime, Coreg 3.125 mg p.o. b.i.d., clonidine 0.1 mg q.4. p.r.n., Plavix 75 mg once a day, heparin 5000 units subcu t.i.d., hydr alazine 50 mg p.o. t.i.d., Humalog sliding scale, lispro insulin sliding scale at bed time, nitroglyc wendi, Nitro-Bid 2% half an inch q.8 hours. PAST MEDICAL HISTORY: 1. Coronary artery disease. 2. Hyperlipidemia. 3. Type 2 diabetes mellitus. 4. Chronic renal failure - Patient unclear if she is aware about this status post CVA. PAST SURGICAL HISTORY: 1. Status post cardiac catheterization. 2. Status post CABG. 3. Status post hysterectomy. ALLERGIES: None. TRAUMA: None. IMMUNIZATIONS: Up to date. HOSPITALIZATIONS: Please see past medical history. FAMILY HISTORY: No family history of ESRD. SOCIAL HISTORY: The patient is . She lives in [place], [place], but visits her daughter in [place], [place]. She has 8 children. No history of smoking, no alcohol. 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 Status post blood transfusion. No IV drug abuse. PHYSICAL EXAMINATION: VITAL SIGNS: Blood pressure is 135/74, heart rate 70, respiratory rate 16, temperature 97.7, and pu lse ox 100%. GENERAL: Noted to be awake, alert, sitting comfortable, not in distress. SKIN: Adequate turgor. HEENT: She has slightly pale conjunctivae, anicteric sclerae. NECK: No neck mass, no carotid bruits, no JVD. CHEST: No deformities. LUNGS: Clear breath sounds, no wheezing, no crackles. HEART: Normal sinus rhythm. No murmur, no gallops, no rubs. ABDOMEN: Globular, soft, nontender. No masses. EXTREMITIES: No edema, no deformities. LABORATORY: On 02/02/2018 white count 4.2, hemoglobin 10.5. Sodium 141, potassium 4, chloride 109, carbon dioxide 22, BUN 60, creatinine 3.45, glucose 117, calcium 8.6, triglyceride 112, and cholester ol 163. Chest x-ray of 02/01/2018, increased lung markings. Nuclear stress test shows EF of 44%, low grade, inferior and lateral wall ischemia. ASSESSMENT AND PLAN: 1. Chronic renal failure/acute kidney injury with a longstanding history of diabetes mellitus and pr oteinuria in the urine. Consideration for the possibility of diabetic nephropathy. Please note this patient was on home furosemide. This could have aggravated her renal dysfunction in the past. 2. For the moment, continue current management. Hold off any diuretics at the present time. Hold o ff any MARA inhibitors until we can stabilize the renal function. Salt-poor albumin 25 grams IV q.6 h ours has been ordered to optimize hemodynamics. Once the renal function is much improved. We could consider resuming back her home furosemide. I have not excluded in considering low dose MARA inhibito rs with this patient. Once the renal function is much improved. I would also suggest that we procee d to at least get a baseline renal ultrasound with the patient. 3. Chest pain resolved. She does have evidence of active ischemia based on the stress test. Cardio logy is following. Due to the advanced renal dysfunction a conservative management for the moment wi ll be more appropriate.
[2018-02-02] MEDS: Amlodipine 10 MG TAB PO SCH (23:44)
[2018-02-03] MEDS: Albumin 25% 25 GM/100 ML BOT IVPB SCH ×3 (01:19→12:11)
[2018-02-03] MEDS: Acetaminophen 325 MG TAB PO PRN ×2 (06:34→09:41)
[2018-02-03] MEDS: HumaLOG 300 UNITS/3 ML VIAL SC PRN ×2 (06:34→12:11)
[2018-02-03] MEDS: Atorvastatin Calcium 40 MG TAB PO SCH (09:38)
[2018-02-03] MEDS: Carvedilol 6.25 MG TAB PO SCH (09:39)
[2018-02-03] MEDS: Clopidogrel Bisulfate 75 MG TAB PO SCH (09:39)
[2018-02-03] MEDS: Heparin 5,000 UNITS/ML VIAL SC SCH ×2 (09:39→15:04)
[2018-02-03] MEDS: hydrALAZINE 25 MG TAB PO SCH ×2 (09:40→15:05)
[2018-02-03 11:23] LABS: Anion Gap 17 mmol/L (10-20); BUN (Urea Nitrogen) 62 mg/dL (9.8-20.1); Calc. Creatinine Clearance 15 mL/min (70-130); Calcium 8.3 mg/dL (7.8-10.44); Carbon Dioxide 20 mmol/L (23-31); Chloride 106 mmol/L (98-107); Estimated GFR-MDRD 12; Glucose 263 mg/dL (83-110); Potassium 3.9 mmol/L (3.5-5.1); Sodium 139 mmol/L (136-145)
--- NOTE | 2018-02-03 12:04 | PRG ---
DATE OF SERVICE: 02/03/2018 RENAL MEDICINE SUBJECTIVE: Ms. Christopher is a 77-year-old female who was seen for her chronic renal failure from a presumed diabetic nephropathy. She was given salt poor albumin. However, renal function cont inues to worsen. Renal ultrasound shows significant kidney problem with increased cortical echogenic ity. Cardiology has evaluated this patient and she is not a candidate for any invasive procedure due to the worsening renal dysfunction. Medical management has been recommended. No new complaints tod ay. Her appetite is excellent. No chest pain or shortness of breath. PHYSICAL EXAMINATION: VITAL SIGNS: Blood pressure is 113/56, heart rate 72, respiratory rate 16, temperature 99.3, pulse o x 96%. GENERAL: Awake, sitting comfortable, not in distress SKIN: Adequate turgor. HEENT: She has pinkish conjunctivae, anicteric sclerae. NECK: No neck mass, no carotid bruits, no JVD. CHEST: No deformities. LUNGS: Clear breath sounds. HEART: Normal sinus rhythm. No murmurs, no gallops, no rubs. ABDOMEN: Globular, soft, nontender, no masses. EXTREMITIES: No edema, no deformities. MEDICATIONS: Medications of 02/03/2018 reviewed. LABORATORY DATA: Laboratories of 02/02/2018; white count 4.2, hemoglobin 10.5. On 02/03/2018; sodiu m 139, potassium 3.9, chloride 106, carbon dioxide 20, BUN 62, creatinine 3.66, glucose 263, calcium 8.3. ASSESSMENT AND PLAN: 1. Acute kidney injury/chronic renal failure - secondary to diabetic nephropathy. Off her Lasix and MARA inhibitors. Continue albumin infusion. Hopefully, renal function will plateau. I did discuss this issue with the patient and her family via an transplant registered nurse - the granddaughter regarding the event ual need for dialytic intervention. She was also advised to follow up with a local salt washer at [facility] at [place], [place]. For the moment, continue supportive care. 2. Anemia. Start Epogen 7,500 units subcu every week. Recheck base met and CBC in a.m.
--- NOTE | 2018-02-03 12:10 | EKG ---
Test Reason : Blood Pressure : / mmHG Vent. Rate : 085 BPM Atrial Rate : 085 BPM P-R Int : 112 ms QRS Dur : 086 ms QT Int : 402 ms P-R-T Axes : -01 039 207 degrees QTc Int : 478 ms Normal sinus rhythm Nonspecific ST and T wave abnormality Prolonged QT Abnormal ECG Confirmed by LANA EVANS ([id number]), editor & co founder BERLIN PANCHAL ([id number]) on 02/03/2018 12:09:35 PM Referred By: Confirmed By:LANA EVANS
[2018-02-03 12:28] VITALS: BP 109/68; TEMP 97.6
--- NOTE | 2018-02-03 12:34 | PDOC.PN ---
- Subjective Encounter Start Date: 02/03/18 Encounter Start Time: 12:31 Ms. Christopher was seen for follow-up of Chest pain. She is feeling better now. She does not have any complaints. - Objective MAR Reviewed: Yes Vital Signs & Weight: Vital Signs (12 hours) Temp Pulse Resp BP BP BP Pulse Ox 02/03/18 12:27 97.6 F 72 16 109/68 98 02/03/18 08:00 99.3 F 72 16 113/56 L 96 02/03/18 05:32 97 02/03/18 03:22 98.1 F 76 20 139/60 97 Weight Weight 159 lb 12.8 oz I&O: 02/02/18 02/03/18 02/04/18 06:59 06:59 06:59 Intake Total 500 Balance 500 Result Diagrams: 02/02/18 04:49 02/03/18 10:45 Additional Labs: Accuchecks 02/03/18 02/03/18 02/02/18 11:41 06:26 20:54 POC Glucose 256 H 167 H 150 H 02/02/18 16:57 POC Glucose 242 H Phys Exam - Physical Examination HEENT: PERRLA Respiratory: no wheezing, no rales, no rhonchi, clear to auscultation bilateral Cardiovascular: RRR, no significant murmur, no rub Gastrointestinal: soft, positive bowel sounds Musculoskeletal: no edema Dx/Plan (1) Acute on chronic kidney failure Code(s): N17.9 - ACUTE KIDNEY FAILURE, UNSPECIFIED; N18.9 - CHRONIC KIDNEY DISEASE, UNSPECIFIED Status: Acute (2) DM2 (diabetes mellitus, type 2) Status: Chronic (3) HTN (hypertension) Code(s): I10 - ESSENTIAL (PRIMARY) HYPERTENSION Status: Chronic Qualifiers: Comment: exacerbated by psychosocial stress. resume home medication lisnopril. - Plan * Chest pain- possible angina, she has been seen by Cardiology, and the plan is for medical management, and to follow-up with her Figure Refinisher And Repairer in [facility] * HTN- blood pressure is stable * DM- blood glucose is stable * Stable for discharge home.
[2018-02-03] MEDS ORDERED: Epoetin (ESRD) 20,000 UNITS/ML SC SCH (13:00)
--- NOTE | 2018-02-03 23:26 | DIS ---
She has a primary care physician in [place], [place]. DATE OF ADMISSION: 02/01/2018 DATE OF DISCHARGE: DISCHARGE DISPOSITION: Home. PRIMARY DISCHARGE DIAGNOSES: 1. Chest pain, probable angina. 2. Chronic kidney disease stage 5. 3. Hypertension. 4. Diabetes mellitus, type 2. 5. Hyperlipidemia. 6. Cerebral vascular disease. DISCHARGE MEDICATIONS: These are the same and these include Tradjenta 5 mg daily, Tresiba as directe d, Apresoline 50 mg t.i.d., Lasix 40 mg daily, vitamin D2 of 50,000 units daily, Plavix 75 mg daily, carvedilol 3.125 mg twice a day, Lipitor 40 mg daily, aspirin 81 mg a day, amlodipine 10 mg daily. PROCEDURES DONE DURING ADMISSION: The patient had a nuclear stress test in which the ejection fracti on was measured at 44%. There were global hypokinesis and low-grade inferior and lateral wall ischem ia. The patient also had a renal ultrasound showing slight increase in echogenicity to the cortex of both kidneys which would suggest underlying medical renal parenchymal disease. CODE STATUS: FULL CODE. ALLERGIES: No known drug allergies. HOSPITAL COURSE: Ms. Christopher is a very pleasant 77-year-old female who presented to the emergency ro om with complaints of chest pain. She was ruled out and underwent a nuclear stress test which showed some areas of low-grade inferior and lateral wall ischemia. She was seen by Cardiology who recommen ded continued medical management. She was also seen by Nephrology given that her GFR was approximate ly 12. She had originally said that she did not have a inside outside sales representative, but in fact does have a nephrol ogist in [place], [place]. She was told that she is approaching the need for dialysis and we will need to have close followup there. The patient's medications will state the same. She should consult her pension agent to see if she would like to make any additional changes in her medications to prevent t he recurrence of her anginal symptoms. Her blood pressure at the time of discharge was more or less marginal and for this reason, I did not add Nitrostat.
== END 2018-02-03 15:02 | disposition home or self-care (01) | DRG 303 ==
LOC: ERS 04:36 → ERHOLD 08:00 → OBSVTOIN 09:13 → 2SE 12:42
PROVIDERS: ADMIT Internal Medicine; ATTEND Internal Medicine
DX: I25.119 Atherosclerotic heart disease of native coronary artery with unspecified angina pectoris (principal); I12.0 Hypertensive chronic kidney disease with stage 5 chronic kidney disease or end stage renal disease; N18.5 Chronic kidney disease, stage 5; N17.9 Acute kidney failure, unspecified; E11.22 Type 2 diabetes mellitus with diabetic chronic kidney disease; I25.10 Atherosclerotic heart disease of native coronary artery without angina pectoris; E78.5 Hyperlipidemia, unspecified; Z86.73 Personal history of transient ischemic attack (TIA), and cerebral infarction without residual deficits; Z95.1 Presence of aortocoronary bypass graft
CPT/HCPCS: 36415; 36416; 76770; 78452; 80048; 80061; 85025; 90471; 90670; 93005; 93017; 94760; 96374; A9500; G0009; J1644; J1940; P9047; Q4081

== ENCOUNTER 2018-02-05 02:44 | Inpatient (IN) | payer MEDICARE, MEDICAID ==
[2018-02-05 04:29] LABS: #Eosinphils 0.1 thou/uL (0.0-0.7); #Lymphocytes 1.6 thou/uL (1.20-3.40); #Monocytes 0.5 thou/uL (0.11-0.59); #Neutrophils 6.2 thou/uL (1.40-6.50); %Basophils 0.3 % (0.0-1.0); %Eosinophils 0.9 % (0.0-10.0); %Lymphocytes 18.5 % (21.0-51.0); %Monocytes 6.1 % (0.0-10.0); %Neutrophils 74.2 % (42.0-75.0); Hemoglobin 10.3 g/dL (12.0-16.0); Mean Corpuscular HGB CONC 33.4 g/dL (32.0-36.0); Mean Corpuscular Hemoglobin 31.2 pg (27.0-31.0); Mean Corpuscular Volume 93.4 fL (78.0-98.0); Mean Platelet Volume 7.9 fL (7.4-10.4); Platelet Count 266 thou/uL (130-400); RBC Distribution Width 12.1 % (11.5-14.5); White Blood Cell (WBC) Count 8.4 thou/uL (4.8-10.8)
[2018-02-05 04:43] LABS: ALT (SGPT) 16 U/L (8-55); AST (SGOT) 16 U/L (5-34); Albumin 4.8 g/dL (3.4-4.8); Alkaline Phosphatase 106 U/L (40-150); Anion Gap 18 mmol/L (10-20); BUN (Urea Nitrogen) 78 mg/dL (9.8-20.1); Bilirubin, Total 0.3 mg/dL (0.2-1.2); Calc. Creatinine Clearance 0 mL/min (70-130); Carbon Dioxide 19 mmol/L (23-31); Chloride 107 mmol/L (98-107); Estimated GFR-MDRD 10; Globulin 3.4 g/dL (2.4-3.5); Glucose 156 mg/dL (83-110); Potassium 4.2 mmol/L (3.5-5.1); Protein, Total 8.2 g/dL (6.0-8.3); Sodium 140 mmol/L (136-145)
[2018-02-05 04:47] LABS: Troponin I Less than 0.010 ng/mL (< 0.028)
[2018-02-05 08:13] LABS: Troponin I 0.013 ng/mL (< 0.028)
[2018-02-05] MEDS ORDERED: Dextrose 5% in Water 1,000 ML IV PRN (11:08)
[2018-02-05] MEDS ORDERED: Ondansetron ODT 4 MG TAB PO PRN (11:08)
[2018-02-05] MEDS ORDERED: hydrALAZINE 20 MG/ML VIAL SLOW IVP PRN (11:08)
[2018-02-05] MEDS ORDERED: cloNIDine 0.1 MG TAB PO PRN (11:08)
[2018-02-05] MEDS ORDERED: HumaLOG 300 UNITS/3 ML VIAL SC PRN (11:08)
[2018-02-05] MEDS ORDERED: Dextrose 50% Abboject 50 ML SYRINGE SLOW IVP PRN (11:08)
[2018-02-05] MEDS: Acetaminophen 500 MG TAB PO PRN ×2 (11:26→20:14)
[2018-02-05] MEDS ORDERED: Furosemide 40 MG/4 ML VIAL SLOW IVP SCH (12:00)
--- NOTE | 2018-02-05 13:08 | HP ---
DATE OF ADMISSION: 02/05/2018 PRIMARY CARE PROVIDER: Abhay english. CHIEF COMPLAINT: Shortness of breath and chest pain. HISTORY OF PRESENT ILLNESS: This is a 77-year-old female who presents to [facility] Emergency Department complaining of recurrent chest pain, shortness of breath and choking sensation which began approximately midnight. The patient was recently admitted to [facility] from 0 02/01/2018-02/03/2018 for similar presentation undergoing extensive evaluation including Cardiolite st ress testing showing ejection fraction of 44% with global hypokinesia and inferior and lateral wall i schemia. The patient was evaluated by the Cardiology service during this admission with recommendati ons for medical management and to follow up with her primary care provider in the [place], [place] area where patient resides. The patient was also evaluated due to worsening renal function and chronic ki dney disease stage 5. The patient was not deemed an appropriate candidate to initiate hemodialysis u rgently with recommendations for Nephrology followup after returning to [place], [place]. The patient h as not returned to [place], [place] and resides with her family that she has been visiting in the [facility]. The patient denied any increased lower extremity swelling, but notices shortness of eliel ath and chest pain waking her up in the middle of the night. No jaw or left arm discomfort. No rece nt trauma, injury, fever, chills or increased cough or congestion. The patient was evaluated as stat ed previously by Cardiology; however, was recommended for medical management due to chronic kidney di sease stage 5 and lack of hemodialysis. The patient was discharged home, presenting back with increa sed shortness of breath as stated previously. In the emergency room, the patient underwent general e valuation with troponin I negative x2. The patient received aspirin and nitroglycerin and was referr ed to the Hospitalist Service for further evaluation. PAST MEDICAL HISTORY: 1. Chronic kidney disease stage 5. 2. Hypertension. 3. Hyperlipidemia. 4. Diabetes mellitus type 2, insulin requiring. 5. History of cerebrovascular accident. 6. Coronary artery disease. PAST SURGICAL HISTORY: 1. Status post coronary artery bypass grafting. 2. Status post hysterectomy. CURRENT MEDICATIONS: 1. Amlodipine 10 mg 1 tab p.o. daily. 2. Enteric-coated aspirin 81 mg 1 tab p.o. daily. 3. Lipitor 40 mg 1 tab p.o. daily. 4. Coreg 3.125 mg p.o. b.i.d. 5. Plavix 75 mg 1 tab p.o. daily. 6. Vitamin D2 50,000 units p.o. daily. 7. Lasix 40 mg 1 tab p.o. daily. 8. Hydralazine 50 mg p.o. t.i.d. 9. Tresiba FlexTouch 1 unit subcutaneously daily. 10. Tradjenta 5 mg p.o. daily. ALLERGIES: No known drug allergies. FAMILY HISTORY: No inheritable diseases per patient report. SOCIAL HISTORY: The patient resides with family members in the [place], [place], and originally [place], [place]. No current alcohol, tobacco or illicit drug use. Functional of all activities of daily living. REVIEW OF SYSTEMS: The following complete review of systems was negative, unless otherwise mentioned in the HPI or below: Constitutional: Weight loss or gain, ability to conduct usual activities. Skin: Rash, itching. Eyes: Double vision, pain. ENT/Mouth: Nose bleeding, neck stiffness, pain, tenderness. Cardiovascular: Palpitations, dyspnea on exertion, orthopnea. Respiratory: Shortness of breath, wheezing, cough, hemoptysis, fever or night sweats. Gastrointestinal: Poor appetite, abdominal pain, heartburn, nausea, vomiting, constipation, or diarrhea. Genitourinary: Urgency, frequency, dysuria, nocturia. Musculoskeletal: Pain, swelling. Neurologic/Psychiatric: Anxiety, depression. Allergy/Immunologic: Skin rash, bleeding tendency. PHYSICAL EXAMINATION: VITAL SIGNS: On admission, blood pressure 162/75, pulse 92, respiratory rate 16, temperature 97.7 de grees Fahrenheit, O2 saturation 97% on 2 liters per minute by nasal cannula. GENERAL APPEARANCE: This is a 77-year-old female, Sammarinese speaking only, alert and oriented x3, pleasant, in mild distress. HEENT: Pupils are equal, round, and reactive to light and accommodation. Extraocular muscles are in tact. No scleral icterus. No conjunctival injection. Nares patent. OP is clear. Teeth in fair re pair. NECK: Supple, no cervical adenopathy, no thyromegaly, no carotid bruits, no JVD appreciated. Cervic al spine with full active and passive range of motion. No meningeal signs appreciated. CHEST: Few scattered rhonchi in the bibasilar segments. CARDIOVASCULAR: S1, S2 without noted murmur, rub or gallop. ABDOMEN: Rounded, soft, nontender, nondistended. Bowel sounds are positive in all four quadrants. There is no hepatosplenomegaly, no abdominal bruits, no rebound or guarding appreciated. EXTREMITIES: Warm and dry with fair turgor. No clubbing, cyanosis or asymmetric edema appreciated. Pulses palpable distally at the dorsalis pedis, posterior tibial, and popliteal arteries bilaterally . Capillary refill less than 2 seconds. NEUROLOGIC: Cranial nerves II-XII are grossly intact. No focal or lateralizing signs appreciated. PERTINENT LABORATORY AND X-RAY FINDINGS: Sodium 140, potassium 4.2, chloride 107, CO2 of 19, BUN 78, creatinine 4.24, estimated GFR 10, glucose 156, calcium 9.0, troponin I negative x2. Albumin 4.8. CBC showed a white blood cell count 8.4, hemoglobin 10, hematocrit 31, platelet count 266 with normal differential. Portable chest x-ray dated 02/05/2018 showed interstitial and alveolar pulmonary erum a. EKG dated 02/05/2018, by my interpretation shows sinus mechanism with heart rates in the 70s. No rmal R-wave progression noted in the precordial leads. Normal axis. No acute ST-T wave changes appr eciated. Cardiolite stress test dated 02/01/2018 showed a low-grade inferior and lateral wall ischem ia. Global hypokinesis with estimated ejection fraction of 44%. ASSESSMENT AND PLAN: 1. Dyspnea. Suspect multifactorial including pulmonary edema in the context of end-stage renal dise ase. We will continue supportive management. Lasix 40 mg IV b.i.d. The patient likely will need to proceed with hemodialysis for volume management. 2. End-stage renal disease. We will consult Nephrology service for consideration of initiation of h emodialysis during this hospital stay. The patient likely will not be successful on discharge and re turning to her home in [place], [place] without initiation of hemodialysis during this hospital stay. 3. Coronary artery disease. The patient with ischemic changes on recent Cardiolite stress testing. We will consult Cardiology Service for evaluation and likely need for left heart catheterization. C ontinue aspirin and Plavix. Add nitro paste half inch q.8 hours. 4. Diabetes mellitus type 2, insulin requiring. Insulin sliding scale for reflexive coverage. Resu me Tradjenta and Tresiba. Accu-Cheks a.c. and at bedtime. ADA diet. 5. Prophylaxis. Sequential compression devices while in bed. Pepcid 20 mg p.o. b.i.d. 6. Code status is FULL. Surrogate medical decision maker is patient's son.
[2018-02-05] MEDS: traMADol HCl 50 MG TAB PO PRN ×2 (13:40→18:47)
[2018-02-05] MEDS: Nitroglycerin 2% Ointment 1 INCH/1 GM Packet TOP SCH ×2 (13:40→20:14)
--- NOTE | 2018-02-05 17:23 | PRG ---
DATE OF SERVICE: 02/05/2018 SUBJECTIVE: Ms. Christopher is a 77-year-old female, who was seen by the Renal Service for her acute kidney injury on top of her chronic renal failure. She has underlying diabetic nephropathy. L ast visit, her creatinine prior to discharge was about 3.7. She was given salt poor albumin at that time. She was discharged on diuretics. She came back complaining of chest pain, shortness of breath . On close questioning, the patient's son described it as chest pain more towards the neck. This wa s associated with some mild shortness of breath, at the same time, she was noted to be wheezing. The family thinks strongly that this could be an allergic reaction for their grandmother. Currently, th e patient is not complaining of any chest pain or shortness of breath. She has been started on IV La six. I did mention about the possible dialysis in the family is not very open to a dialytic intervention t he present time. OBJECTIVE: VITAL SIGNS: Blood pressure is 162/74, heart rate 69, respiratory rate 20, temperature 97.7, and pul se ox 98%. GENERAL: Noted to be awake, sitting comfortable, not in overt distress. SKIN: Adequate turgor. HEENT: She has pinkish conjunctivae, anicteric sclerae. NECK: No neck mass, no carotid bruits, no JVD. CHEST: No deformities. LUNGS: Clear breath sounds. No wheezing, no crackles. HEART: Normal sinus rhythm. No murmur, no gallops or rubs. ABDOMEN: Globular, soft, nontender, no masses. EXTREMITIES: Trace edema. MEDICATIONS: On 02/05/2018 was reviewed. LABORATORY DATA: On 02/05/2018 - Sodium 140, potassium 4.2, chloride 107, carbon dioxide 19, BUN 78, creatinine 4.24, GFR 10 mL per minute, calcium 9, albumin 4.8. White count 8.4, hemoglobin 10.3. ASSESSMENT AND PLAN: 1. Acute kidney injury on top of her chronic renal failure - patient has been placed on diuretics. There may be still a component of prerenal azotemia. We will try salt poor albumin infusion with thi s patient 25 grams IV q.6 hours. If renal function further worsens, we may need to consider dialytic intervention. However, the family and patient is understand to proceed with any dialytic interventi on. 2. Chest pain, shortness of breath - the family thinks she may be having allergic reaction. This co uld be described wheezing when she was having this episode at home. My plan is to at least started o n DuoNeb at q.6 hours - on a regular basis. 3. Chest pain. Unclear if this is cardiac etiology. We will start patient on nitro paste one inch q.6. Please note that the previous cardiac stress test showed some mild cardiac ischemia. Agree wit h current management.
[2018-02-05] MEDS: Albumin 25% 25 GM/100 ML BOT IVPB SCH ×2 (18:48→23:35)
[2018-02-05] MEDS: HumaLOG 300 UNITS/3 ML VIAL SC PRN (18:48)
[2018-02-05 19:36] VITALS: BMI 32.7
[2018-02-05] MEDS: Famotidine 20 MG TAB PO SCH (20:14)
[2018-02-05] MEDS: Docusate 100 MG CAP PO SCH (21:19)
[2018-02-06] MEDS: Ondansetron HCl/PF 4 MG/2 ML Vial IVP PRN ×2 (00:08→16:56)
[2018-02-06] MEDS: Furosemide 40 MG/4 ML VIAL SLOW IVP SCH ×2 (05:13→14:14)
[2018-02-06] MEDS: Albumin 25% 25 GM/100 ML BOT IVPB SCH ×3 (05:13→18:50)
[2018-02-06] MEDS: Nitroglycerin 2% Ointment 1 INCH/1 GM Packet TOP SCH ×4 (05:13→20:41)
[2018-02-06] MEDS: HumaLOG 300 UNITS/3 ML VIAL SC PRN ×3 (05:28→20:50)
[2018-02-06 06:04] LABS: Band 8 % (5-11); Eosinophils 2 % (0-10); Hemoglobin 9.9 g/dL (12.0-16.0); Lymphocytes 13 % (21-51); MDiff Complete? YES; Mean Corpuscular HGB CONC 33.6 g/dL (32.0-36.0); Mean Corpuscular Hemoglobin 32.7 pg (27.0-31.0); Mean Corpuscular Volume 97.2 fL (78.0-98.0); Mean Platelet Volume 8.4 fL (7.4-10.4); Metamyelocyte 1 % (0-0); Monocytes 3 % (0-10); Neutrophil 73 % (42-75); PLT Morphology Comment Appears Adequate; Platelet Count 254 thou/uL (130-400); RBC Distribution Width 12.3 % (11.5-14.5); Red Blood Cell (RBC) Count 3.04 mill/uL (4.20-5.40)
[2018-02-06 06:08] LABS: Anion Gap 21 mmol/L (10-20); BUN (Urea Nitrogen) 70 mg/dL (9.8-20.1); Calc. Creatinine Clearance 16 mL/min (70-130); Calcium 9.6 mg/dL (7.8-10.44); Carbon Dioxide 18 mmol/L (23-31); Chloride 107 mmol/L (98-107); Estimated GFR-MDRD 12; Glucose 206 mg/dL (83-110); Potassium 4.3 mmol/L (3.5-5.1); Sodium 142 mmol/L (136-145)
[2018-02-06] MEDS ORDERED: PRE FILLED SC SCH (09:00)
[2018-02-06] MEDS ORDERED: INSULIN GLARGINE SC SCH (09:00)
[2018-02-06] MEDS ORDERED: INSULIN DEGLUDEC 1 UNIT SC SCH (09:00)
[2018-02-06] MEDS: Atorvastatin Calcium 40 MG TAB PO SCH (09:13)
[2018-02-06] MEDS: Clopidogrel Bisulfate 75 MG TAB PO SCH (09:13)
[2018-02-06] MEDS: Nitroglycerin 0.4mg/Hour PATCH TD SCH (09:13)
[2018-02-06] MEDS: Docusate 100 MG CAP PO SCH ×2 (09:13→20:41)
[2018-02-06] MEDS: Aspirin 81 mg Enteric Coated Tablet PO SCH (09:14)
[2018-02-06] MEDS: traMADol HCl 50 MG TAB PO PRN (11:05)
[2018-02-06] MEDS: Alogliptin 6.25 MG TAB PO SCH (11:06)
[2018-02-06] MEDS: Ergocalciferol 1.25 MG(50,000 UNITS) CAP PO SCH (11:06)
--- NOTE | 2018-02-06 14:16 | PDOC.PN ---
- Subjective Encounter Start Date: 02/06/18 Encounter Start Time: 13:45 Subjective: f/u for dyspnea, pulm edema and ESRD. SOB improved with Lasix and Albumin -: No fever or chills. Does not want dialysis currently. - Objective Resuscitation Status: Resuscitation Status FULL:Full Resuscitation MAR Reviewed: Yes Vital Signs & Weight: Vital Signs (12 hours) Temp Pulse Resp BP BP Pulse Ox 02/06/18 13:42 80 14 02/06/18 12:00 98.1 F 82 16 130/63 91 L 02/06/18 08:00 97.7 F 87 12 189/79 H 98 02/06/18 06:38 80 14 02/06/18 03:28 97.7 F 78 20 168/77 H 94 L Weight Weight 177 lb 4.8 oz I&O: 02/05/18 02/06/18 02/07/18 06:59 06:59 06:59 Intake Total 1920 Output Total 1700 Balance 220 Result Diagrams: 02/06/18 05:10 02/06/18 05:10 Additional Labs: Accuchecks 02/06/18 02/06/18 02/05/18 11:06 05:27 21:26 POC Glucose 232 H 208 H 136 H 02/05/18 17:01 POC Glucose 164 H Laboratory Tests 02/05/18 02/05/18 04:25 04:25 Hgb 10.3 L Creatinine 4.24 H EKG Reviewed by me: Yes (Tele - SR) Phys Exam - Physical Examination Constitutional: NAD HEENT: PERRLA, sclera anicteric, oral pharynx no lesions Neck: no nodes, no JVD, supple, full ROM few basilar crackles Respiratory: no wheezing S1, S2 Cardiovascular: RRR, no significant murmur, no rub, gallop Gastrointestinal: soft, non-tender, no distention, positive bowel sounds Musculoskeletal: no edema, pulses present Neurological: non-focal, normal sensation, moves all 4 limbs Skin: no rash, normal turgor, cap refill <2 seconds Dx/Plan (1) Dyspnea Code(s): R06.00 - DYSPNEA, UNSPECIFIED Status: Acute Comment: Due to pulmonary edema secondary to ESRD, improved with Lasix and Albumin IV, continue supportive mgmt (2) ESRD (end stage renal disease) Code(s): N18.6 - END STAGE RENAL DISEASE Status: Chronic Comment: Pt not interested in HD currently, continue Lasix and Albumin, avoid nephrotoxic meds and limit contrast exposure (3) DM2 (diabetes mellitus, type 2) Status: Chronic Comment: ISS, accuchecks, confirm home insulin regimen (4) HTN (hypertension) Code(s): I10 - ESSENTIAL (PRIMARY) HYPERTENSION Status: Chronic Qualifiers: Hypertension type: essential hypertension Comment: Labile, resume Amlodipine, Hydralazine and Coreg - Plan plan discussed w/ family, mental health social worker, out of bed/ambulate, DVT proph w/SCDs Stable overall -: Continue Lasix 40mg IV BID -: Albumin 25gm IV q6h -: Resume Coreg, Hydralazine and Amlodipine -: No HD per pt request * AM lab: BMP * Likely home in 24h
[2018-02-06] MEDS: hydrALAZINE 25 MG TAB PO SCH ×2 (18:14→20:40)
[2018-02-06] MEDS: Carvedilol 3.125 MG TAB PO SCH (20:41)
[2018-02-06] MEDS: Famotidine 20 MG TAB PO SCH (20:47)
--- NOTE | 2018-02-06 21:01 | PRG ---
DATE OF SERVICE: 02/06/2018 SUBJECTIVE: Ms. Christopher is a 77-year-old female with chronic renal failure from presumed di abetic nephropathy and admitted for chest pain. Currently, patient is asymptomatic. Her shortness o f breath is also improved. She has been started a combination of furosemide and albumin. Renal func tion is also slightly improved today from a creatinine 4.24 to about 3.7. Again, this patient is sti ll not wanting to proceed with dialysis. No other complaints today. PHYSICAL EXAMINATION: VITAL SIGNS: Blood pressure is 145/74, heart rate 76, respiratory rate 16, temperature 97.7, pulse o x 93%. GENERAL: Awake, alert, comfortable, not in distress SKIN: Adequate turgor. HEENT: She has slightly pale conjunctivae, anicteric sclerae. NECK: No neck mass, no carotid bruits, no JVD. CHEST: No deformities. LUNGS: Clear breath sounds. HEART: Normal sinus rhythm. No murmur, no gallops or rubs. ABDOMEN: Globular, soft, nontender, no masses. EXTREMITIES: No edema, no deformities. MEDICATIONS: On 02/06/2018 was reviewed. LABORATORY DATA: On 02/06/2018 - white count 6, hemoglobin 9.9. Sodium 142, potassium 4.3, chloride 107, carbon dioxide 18, BUN 70, creatinine 3.76, glucose 206, calcium 9.6. Hemoglobin 9.9. ASSESSMEN: Chronic renal failure from diabetic nephropathy. Slightly improved creatinine from 4.2 t o most recent value of 3.76. Continue salt poor albumin. She seems to be better, tolerating the cur rent diuretic regimen. Continue ____ management. The patient still declining any dialytic intervent ion. I did explain to the family that eventually she will need dialysis. They will try to get in touch wi th her local doctor Malvin Mayers: Chest pain, status failure. I think clinically much improved - o n IV diuretics. Continue to pee." Agree with current management. Consider for discharge.
[2018-02-07] MEDS: Albumin 25% 25 GM/100 ML BOT IVPB SCH ×3 (00:19→13:32)
[2018-02-07] MEDS: Nitroglycerin 2% Ointment 1 INCH/1 GM Packet TOP SCH (04:45)
[2018-02-07] MEDS: Furosemide 40 MG/4 ML VIAL SLOW IVP SCH (05:45)
[2018-02-07] MEDS: HumaLOG 300 UNITS/3 ML VIAL SC PRN (05:45)
[2018-02-07 05:53] LABS: Anion Gap 20 mmol/L (10-20); BUN (Urea Nitrogen) 70 mg/dL (9.8-20.1); Calc. Creatinine Clearance 14 mL/min (70-130); Carbon Dioxide 18 mmol/L (23-31); Chloride 105 mmol/L (98-107); Estimated GFR-MDRD 10; Glucose 164 mg/dL (83-110); Potassium 4.2 mmol/L (3.5-5.1); Sodium 139 mmol/L (136-145)
[2018-02-07] MEDS ORDERED: Amlodipine 10 MG TAB PO SCH (09:00)
[2018-02-07] MEDS ORDERED: Epoetin (ESRD) 20,000 UNITS/ML SC SCH (09:30)
[2018-02-07] MEDS: hydrALAZINE 25 MG TAB PO SCH (09:37)
[2018-02-07] MEDS: Clopidogrel Bisulfate 75 MG TAB PO SCH (09:38)
[2018-02-07] MEDS: Carvedilol 3.125 MG TAB PO SCH (09:38)
[2018-02-07] MEDS: Docusate 100 MG CAP PO SCH (09:38)
[2018-02-07] MEDS: Aspirin 81 mg Enteric Coated Tablet PO SCH (09:38)
[2018-02-07] MEDS: Alogliptin 6.25 MG TAB PO SCH (09:38)
[2018-02-07] MEDS: Nitroglycerin 0.4mg/Hour PATCH TD SCH (09:39)
[2018-02-07] MEDS: Atorvastatin Calcium 40 MG TAB PO SCH (09:39)
--- NOTE | 2018-02-07 09:42 | PRG ---
DATE OF SERVICE: 02/07/2018 SUBJECTIVE: Ms. Christopher is a 77-year-old female being followed up for her chronic renal reagan agustina. She came in with chest pain. Chest pain is now resolved. She was also found to have a higher creatinine of more than 4 mg percent. A combination of salt poor albumin and furosemide was given. However, the patient has been declining the salt poor albumin. This morning, her renal function was noted to be worse from yesterday. Again, the family is inclined not to initiate dialysis here. No other complaints from the patient. She is wanting to go home. PHYSICAL EXAMINATION: VITAL SIGNS: Blood pressure is 151/71, heart rate 80, respiratory 16, temperature 98.9, pulse oximet ry 93%. GENERAL: Noted to be awake, alert, comfortable, not in distress. SKIN: Adequate turgor. HEENT: Pinkish conjunctivae, anicteric sclerae. NECK: No neck mass, no carotid bruits, no JVD. CHEST: No deformities. LUNGS: Clear breath sounds. HEART: Normal sinus rhythm. No murmurs, no gallops, no rubs. ABDOMEN: Globular, soft, nontender, no masses. EXTREMITIES: No edema. MEDICATIONS: Medications of 02/07/2018 reviewed. LABORATORY DATA: Laboratories of 02/06/2018, white count 6, hemoglobin 9.9. Sodium 139, potassium 4 .2, chloride 105, carbon dioxide 18, BUN 70, creatinine 4.16, glucose 164, calcium 9.0. ASSESSMENT AND PLAN: 1. Anemia. Start Epogen 7,500 units subcu daily. 2. Chronic renal failure from diabetic nephropathy, fluctuating creatinine. Creatinine noted at 4.1 6 with a GFR of 10 mL per minute. Again, I counseled the patient to consider dialysis. She is not r renee for this. I have decided to discontinue the furosemide due to the worsening renal dysfunction. She has also declined salt poor albumin. 3. Recheck base met and CBC in a.m.
[2018-02-07] MEDS: Ergocalciferol 1.25 MG(50,000 UNITS) CAP PO SCH (12:00)
[2018-02-07 12:09] VITALS: BP 129/59; TEMP 98.6
--- NOTE | 2018-02-07 13:10 | DIS ---
DATE OF ADMISSION: 02/05/2018 DATE OF DISCHARGE: 02/07/2018 DISCHARGE DIAGNOSES: 1. Dyspnea, multifactorial including volume overload. 2. End-stage renal disease in the context of chronic kidney disease stage 5. 3. Diabetes mellitus type 2, insulin requiring. 4. Hypertension, stable. 5. Coronary artery disease. 6. Chronic normocytic anemia secondary to chronic kidney disease. CONSULTATIONS: Dr. Garcias with Nephrology Service. PERTINENT LABORATORY DATA AND X-RAY FINDINGS: BUN ranged between 70-78, creatinine ranged between 3. 76-4.24, estimated GFR ranged between 10-12. Troponin I negative x2. CBC showed a hemoglobin of 10. Portable chest x-ray dated 02/05/2018 showed interstitial and alveolar pulmonary edema. HOSPITAL COURSE: Patient was initially admitted to the telemetry unit after presenting with shortnes s of breath and chest pain in the context of known chronic kidney disease stage 5. The patient under went chest imaging showing pulmonary edema bilaterally. The patient was placed on IV Lasix 40 mg q.1 2 hours and evaluated by the nephrology service for consideration of initiation of hemodialysis. The patient was not interested in pursuing hemodialysis during this hospital course and the patient was placed on salt poor albumin infusions q.6 hours with addition of Lasix therapy. The patient did have excellent diuresis and overall stabilization of respiratory status. The patient continued to declin e hemodialysis during the hospital course with recommendations for outpatient followup and monitoring of renal function after discharge. The patient was initially placed on oxygen supplementation trans itioning to room air without complication. No specific current evidence of an acute ischemic event a nd patient was continued on her chronic aspirin and Plavix therapy. The patient with recent Cardioli te stress testing in 01/2018 showing global hypokinesis in the inferior and lateral wall ischemia wit h calculated ejection fraction of 44%. Overall, the patient remained clinically in baseline function al status with telemetry monitoring showing a sinus mechanism without arrhythmia. I have examined th e patient at the time of discharge and discussed followup instructions with the patient and family wh o verbalized agreement and understanding. The patient is clinically stable and ready for discharge o n 02/07/2018. DISCHARGE MEDICATIONS: 1. Amlodipine 10 mg 1 tab p.o. daily. 2. Enteric coated aspirin 81 mg 1 tab p.o. daily. 3. Lipitor 40 mg p.o. daily. 4. Coreg 3.125 mg p.o. b.i.d. 5. Plavix 75 mg p.o. daily. 6. Vitamin D2 50,000 units 1 capsule p.o. daily. 7. Lasix 40 mg 1 tab p.o. daily. 8. Hydralazine 50 mg p.o. t.i.d. 9. Tresiba FlexTouch daily. 10. Tradjenta 5 mg p.o. daily. FOLLOWUP: The patient may follow up with her primary care provider, Dr. Holley Velasquez in [facility] on returning to her home or residence. CONDITION ON DISCHARGE: Fair. ACTIVITY: ad hilton. DIET: Heart healthy and ADA. CODE STATUS: FULL. SPECIAL INSTRUCTIONS: The patient likely will need to consider hemodialysis in the near future given overall declining renal function. The patient currently declining hemodialysis during this hospital course. DISPOSITION: Home, 02/07/2018. Total time preparing and coordinating discharge is 33 minutes.
== END 2018-02-07 13:42 | disposition home or self-care (01) | DRG 699 ==
LOC: ERS 02:44 → ERHOLD 07:30 → 2SE 08:42
PROVIDERS: ADMIT Family Medicine; ATTEND Family Medicine
DX: E11.22 Type 2 diabetes mellitus with diabetic chronic kidney disease (principal); J81.1 Chronic pulmonary edema; E87.70 Fluid overload, unspecified; N18.6 End stage renal disease; N17.9 Acute kidney failure, unspecified; Z79.4 Long term (current) use of insulin; I25.10 Atherosclerotic heart disease of native coronary artery without angina pectoris; D63.1 Anemia in chronic kidney disease; Z79.82 Long term (current) use of aspirin; E78.5 Hyperlipidemia, unspecified; Z95.1 Presence of aortocoronary bypass graft; R07.9 Chest pain, unspecified; I10 Essential (primary) hypertension
CPT/HCPCS: 36415; 36416; 80048; 85007; 85027; 93005; 94640; J1940; J2405; J7620; P9047; Q4081

== ENCOUNTER 2018-02-16 09:27 | Emergency (ER) | payer MEDICARE, MEDICAID ==
[2018-02-16 10:34] LABS: Bilirubin Negative (Negative); Blood, Urine Negative (Negative); Clarity CLEAR (Clear); Glucose, Urine (Dipstick) 100 mg/dL (Negative); Leukocyte Trace (Negative); Nitrite Negative (Negative); Protein, Urine (Dipstick) 300 mg/dL (Neg-Trace); Specific Gravity, Urine 1.011 (1.002-1.036); Urobilinogen 0.2 mg/dL (0.2-1.0); pH, Urine 5.5 (5.0-9.0)
[2018-02-16 10:36] LABS: Bacteria/HPF None Seen HPF (None Seen); Hyaline Casts/LPF 0-3 HYALINE CAST LPF (0-3 Hyaline); RBC/HPF 0-3 HPF (0-3); Squamous Epithelial 0-3 HPF (0-3)
== END 2018-02-16 11:55 | disposition home or self-care (01) ==
LOC: ERS 09:27
DX: E11.649 Type 2 diabetes mellitus with hypoglycemia without coma (principal); E78.5 Hyperlipidemia, unspecified; I10 Essential (primary) hypertension; Z86.73 Personal history of transient ischemic attack (TIA), and cerebral infarction without residual deficits; F32.9 Major depressive disorder, single episode, unspecified
CPT/HCPCS: 36416; 87086; 99285